=== PATIENT | male | born 1950 | race Caucasian/White ===

== ENCOUNTER 2023-11-19 07:36 | Emergency (ER) | payer MEDICAID ==
[~2023-11-19] VITALS: Ht 162.6 cm; Wt 81.2 kg
[2023-11-19 07:38] VITALS: BP 135/79; PULSE 71; RESP 18; TEMP 97.4; O2SAT 97
[2023-11-19 10:03] LABS: APPEARANCE,URINE CLEAR (CLEAR); BILIRUBIN,URINE NEGATIVE (NEGATIVE); BLOOD, URINE NEGATIVE (NEGATIVE); COLOR,URINE YELLOW (YELLOW); LEUKOCYTE ESTERASE ,URINE NEGATIVE (NEGATIVE); NITRITE, URINE NEGATIVE (NEGATIVE); PROTEIN,URINE NEGATIVE (NEGATIVE); UGLUCOSE NEGATIVE (NEGATIVE); UROBILINOGEN,URINE 0.2 EU/dL (0.2 - 1)
[2023-11-19] MEDS ORDERED: CIPR500T4 PO (10:29)
[2023-11-19] MEDS ORDERED: TAMS0.4C96 PO (10:29)
== END 2023-11-19 10:46 | disposition home or self-care (01) ==
LOC: MED 07:36
DX: R30.0 Dysuria (principal); R35.0 Frequency of micturition; R39.11 Hesitancy of micturition; Z79.899 Other long term (current) drug therapy
CPT/HCPCS: 81003; 87086; 99283